=== PATIENT | male | born 1975 | race Caucasian/White ===

== ENCOUNTER 2017-06-02 09:42 | Inpatient (IN) | payer MEDICAID, MEDICARE, OTHER ==
--- NOTE | 2017-06-02 10:20 | ED ---
General Adult HPI - General Chief complaint: Psychiatric Symptoms Stated complaint: Mental Health Time Seen by Provider: 06/02/17 10:17 Source: patient, RN notes reviewed Mode of arrival: ambulatory Limitations: no limitations - History of Present Illness Initial comments: 41-year-old male presents to the emergency department with a chief complaint of suicidal ideation. The patient states that he has a history of manic bipolar and depression. Patient states he's been very depressed lately is having suicidal thoughts. He states that his medications were recently changed. Patient states that he thought about taking all of his medications but his children have stopped him from doing this. Patient does admit to hospitalization for his psychiatric issues in the past. Patient this time denies any health concerns.Patient denies any recent fever, chills, shortness of breath, chest pain, back pain, abdominal pain, nausea vomiting, numbness or tingling, dysuria or hematuria, constipation or diarrhea, headaches or visual changes, or any other current symptoms. - Related Data Home Medications Medication Instructions Recorded Confirmed DULoxetine HCL [Cymbalta] 60 mg PO BID 06/02/17 06/02/17 Dextroamphetamine/Amphetamine 30 mg PO DAILY 06/02/17 06/02/17 [Adderall] Diazepam [Diazepam] 10 mg PO TID PRN 06/02/17 06/02/17 Diclofenac Potassium [Cataflam] 50 mg PO BID 06/02/17 06/02/17 Pregabalin [Lyrica] 50 mg PO DAILY 06/02/17 06/02/17 Simvastatin [Zocor] 20 mg PO HS 06/02/17 06/02/17 Allergies Allergy/AdvReac Type Severity Reaction Status Date / Time morphine Allergy Unknown Verified 06/02/17 10:54 Review of Systems ROS Statement: Those systems with pertinent positive or pertinent negative responses have been documented in the HPI. ROS Other: All systems not noted in ROS Statement are negative. Past Medical History Past Medical History: No Reported History Additional Past Medical History / Comment(s): Pt fell off of a roof and his right ankle was shattered and it was infected, he lost the cartilage in that ankle, and then he developed back pain. History of Any Multi-Drug Resistant Organisms: None Reported Additional Past Surgical History / Comment(s): fatty tumors removed, and right ankle surgery with pins and screws. Past Anesthesia/Blood Transfusion Reactions: No Reported Reaction Past Psychological History: ADD/ADHD, Anxiety, Bipolar, Depression Smoking Status: Current every day smoker Past Alcohol Use History: Occasional Past Drug Use History: None Reported - Past Family History Mother Family Medical History: Cancer Father Family Medical History: Congestive Heart Failure (CHF) General Exam Limitations: no limitations General appearance: alert, in no apparent distress ENT exam: Present: normal exam, mucous membranes moist Neck exam: Present: normal inspection. Absent: tenderness, meningismus, lymphadenopathy Respiratory exam: Present: normal lung sounds bilaterally. Absent: respiratory distress, wheezes, rales, rhonchi, stridor Cardiovascular Exam: Present: regular rate, normal rhythm, normal heart sounds. Absent: systolic murmur, diastolic murmur, rubs, gallop, clicks Neurological exam: Present: alert, oriented X3 Psychiatric exam: Present: depressed, suicidal ideation. Absent: homicidal ideation Skin exam: Present: warm, dry, intact, normal color. Absent: rash Course Vital Signs 06/02/17 09:55 Temperature 98.1 F Pulse Rate 90 Respiratory 18 Rate Blood Pressure 143/93 O2 Sat by Pulse 97 Oximetry Medical Decision Making - Medical Decision Making 41-year-old male presents to the emergency department with a chief complaint of suicidal ideation with depression. At this time the patient does not appear to be suffering from acute medical emergencies. This time the patient is cleared to be evaluated by psychiatry. At this time the patient was evaluated and the patient will be admitted for continued care. Patient agreement with plan. - Lab Data Lab Results 06/02/17 Range/Units 10:37 Urine Opiates Screen Detected H (NotDetected) Ur Oxycodone Screen Not Detected (NotDetected) Urine Methadone Screen Not Detected (NotDetected) Ur Propoxyphene Screen Not Detected (NotDetected) Ur Barbiturates Screen Not Detected (NotDetected) U Tricyclic Antidepress Not Detected (NotDetected) Ur Phencyclidine Scrn Not Detected (NotDetected) Ur Amphetamines Screen Not Detected (NotDetected) U Methamphetamines Scrn Not Detected (NotDetected) U Benzodiazepines Scrn Detected H (NotDetected) Urine Cocaine Screen Not Detected (NotDetected) U Marijuana (THC) Screen Not Detected (NotDetected) Disposition Clinical Impression: Suicidal ideation Disposition: TRANSFER TO PSYCH HOSP/UNIT Referrals: Casey Carr MD [Primary Care Provider] - 1-2 days
[2017-06-02] MEDS ORDERED: MAGNESIUM HYDROXIDE 2,400 MG/10 ML CUP PO PRN (14:07)
[2017-06-02] MEDS ORDERED: MAG HYDROX/AL HYDROX/SIMETH 30 ML CUP PO PRN (14:07)
[2017-06-02 15:12] VITALS: BMI 28.3
[2017-06-02] MEDS: DIAZEPAM 5 MG TAB PO PRN (17:36)
[2017-06-02] MEDS: ACETAMINOPHEN TAB 325 MG TAB PO PRN (17:36)
[2017-06-02] MEDS: DULoxetine HCL 60 MG CAPSULE.DR PO SCH (20:05)
[2017-06-02] MEDS: ATORVASTATIN 10 MG TAB PO SCH (20:05)
[2017-06-02] MEDS: ETODOLAC 200 MG CAPSULE PO SCH (20:05)
[2017-06-03] MEDS: ETODOLAC 200 MG CAPSULE PO SCH ×2 (08:42→20:56)
[2017-06-03] MEDS: PREGABALIN 50 MG CAP PO SCH (08:42)
[2017-06-03] MEDS: DULoxetine HCL 60 MG CAPSULE.DR PO SCH ×2 (08:42→20:56)
[2017-06-03 09:33] LABS: Basophils % (A) 1 %; CH 32.5; CHCM 33.8; Eosinophils # (A) 0.3 k/uL (0-0.7); Eosinophils % (A) 6 %; HCT 42.7 % (39.0-53.0); HGB 13.7 gm/dL (13.0-17.5); Luc # (Auto) 0.13; Luc % (Auto) 2; Lymphocytes # (A) 1.7 k/uL (1.0-4.8); Lymphocytes % (A) 31 %; MCV 96.7 fL (80.0-100.0); Mean Platelet Volume 7.7; Monocytes # (A) 0.2 k/uL (0-1.0); Monocytes % (A) 4 %; Neutrophils # (A) 3.2 k/uL (1.3-7.7); Neutrophils % (A) 57 %; RBC 4.42 m/uL (4.30-5.90); RDW 13.7 % (11.5-15.5); WBC 5.6 k/uL (3.8-10.6); WBC (Perox) 5.46
[2017-06-03 09:49] LABS: ALT 29 U/L (21-72); AST 17 U/L (17-59); Alkaline Phosphatase 65 U/L (38-126); Anion Gap 8 mmol/L; Blood Urea Nitrogen 18 mg/dL (9-20); Calcium 9.3 mg/dL (8.4-10.2); Carbon Dioxide 29 mmol/L (22-30); Chloride 105 mmol/L (98-107); Glucose 97 mg/dL (74-99); Non-African American GFR(MDRD) >60 (>60 ml/min/1.73 sqM); Potassium 4.8 mmol/L (3.5-5.1); Sodium 142 mmol/L (137-145); Total Bilirubin 0.8 mg/dL (0.2-1.3); Total Protein 6.3 g/dL (6.3-8.2)
[2017-06-03] MEDS: DIAZEPAM 5 MG TAB PO PRN (11:50)
[2017-06-03] MEDS: ACETAMINOPHEN TAB 325 MG TAB PO PRN (11:50)
[2017-06-03] MEDS: OLANZapine 10 MG TAB PO SCH ×2 (13:16→20:56)
[2017-06-03] MEDS: ATORVASTATIN 10 MG TAB PO SCH (20:56)
[2017-06-04] MEDS: DULoxetine HCL 60 MG CAPSULE.DR PO SCH ×2 (08:31→20:43)
[2017-06-04] MEDS: ETODOLAC 200 MG CAPSULE PO SCH ×2 (08:31→20:43)
[2017-06-04] MEDS: PREGABALIN 50 MG CAP PO SCH (08:31)
[2017-06-04] MEDS: OLANZapine 10 MG TAB PO SCH (08:33)
[2017-06-04] MEDS: ACETAMINOPHEN TAB 325 MG TAB PO PRN ×2 (15:32→19:12)
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
--- NOTE | 2017-06-04 18:18 | CONS ---
CONSULTATION Date of Consultation: SUBJECTIVE: This is a 41-year-old, white female, admitted for medical consultation in the unit. Said he had some suicidal ideation. History of manic bipolar depression, depressed, suicidal thoughts. He is in due to worsening depression. MEDICATIONS: Home medicines: 1. Cymbalta. 2. Adderall. 3. Diazepam. 4. . 5. Levaquin. 6. Zocor. ALLERGIES: MORPHINE. REVIEW OF SYSTEMS: Fourteen point review of systems negative except for mentioned in HPI. PAST MEDICAL HISTORY: Right elbow surgery pins and screws, ADHD, anxiety, bipolar depression. Current everyday smoker. PHYSICAL EXAMINATION: Temp 98, pulse 85 to 90, respiratory rate 18 to 20, blood pressure is 140s/90s. His O2 97%. Cardiovascular S1 and S2. Lung transmitted upper airway sounds. Hematological: Negative Homans. Psych: Fair mood and flat affect. ASSESSMENT: 1. Suicidal ideation. 2. Depression. 3. Bipolar history. 4. Nicotine addiction. 5. Possible blood pressure. We will monitor electrolytes, blood pressure. Continue on home medications. Thank you for the consultation. MMMATEUSZL / IJN: [id number] /
[2017-06-04] MEDS: ATORVASTATIN 10 MG TAB PO SCH (20:43)
[2017-06-04] MEDS ORDERED: OLANZapine 5 MG TAB PO SCH (21:00)
[2017-06-05 06:54] VITALS: BP 118/63; PULSE 66; RESP 16; TEMP 97.6
[2017-06-05] MEDS: PREGABALIN 50 MG CAP PO SCH (08:22)
[2017-06-05] MEDS: ETODOLAC 200 MG CAPSULE PO SCH (08:22)
[2017-06-05] MEDS: ACETAMINOPHEN TAB 325 MG TAB PO PRN (08:22)
[2017-06-05] MEDS: DULoxetine HCL 60 MG CAPSULE.DR PO SCH (08:22)
--- NOTE | 2017-06-05 10:36 | PN ---
PROGRESS NOTE DATE OF SERVICE: 06/04/2017. INTERVAL HISTORY: Patient has been doing fairly well. He had a quiet evening last night. He slept well. He was slow to get up this morning. He said that he received his morning medication and ended up going back to his room and falling back to sleep for a while. Other than that, he has been up. He has been attending groups. He says that he recognizes it is important for him to stay active. He has been doing walking to help relax himself. He says he has been attending groups which he finds is helpful. He feels the medications have been working for him. His mood has improved. He has a better outlook. He has been processing issues relating to preparing for discharge. It is noted that he lives with his ex-, though she has a home in [place] and spends most of her time there. It is his understanding that he will need to move out to another home by the of the year. In the home is his 21-year-old daughter. His understanding is that his ex- is coming back from [place], where she has a 2nd home. She will be returning to the home with their other 4 children. He is looking forward to spending time with them. He anticipates that once they get in school, his ex- is likely to be back in [place] and that he would be responsible for getting the kids to school. The youngest is 14. He sees this as a positive role he has. He has been appropriate in his manner. He comes out in the day area. He tends to be on the quiet side. He does not interact too much with others, though her responds reasonably well in group. He seems to make an effort to gain insight about his issues. He has not had change in his general health. He tolerates his psychotropic medications. MENTAL STATUS: Patient sat without restlessness. He had a slow manner. His thoughts were clear. He is speaks in a soft voice. There was some hesitancy in his responses. His affect is somewhat blunted. His mood was quiet. He did appear to be distressed. ASSESSMENT: I will continue the current diagnosis and the treatment plan. I have made an effort to call his mother, who he stays in close contact with. I left a message for her to return the call. The patient does have a followup appointment with Dr. Ashraf through [facility] on June 25. He also was followed by his counselor there, Palomo. We will make an effort to connect with his therapist for discharge planning. If the patient continues to remain stable, I would like to discharge the patient tomorrow. SUSAN / GONZÁLEZ: [id number] / ERASTO
--- NOTE | 2017-06-06 16:47 | DS ---
DISCHARGE SUMMARY DATE OF SERVICE: 06/05/2017 ADMITTING AND DISCHARGE DIAGNOSES: 1. Bipolar affect disorder, depressed phase. 2. Hyperlipidemia. 3. Chronic back pain. HISTORY OF PRESENT ILLNESS: The patient was admitted due to suicide thoughts. He had the impulse to take all his pills. He reported a long-term history of problems with bipolar disorder and depression. He did not provide much information in regards to his history. There were no other sources of information. He apparently was having increased stress over the fact that over the next few months he may not be able to live in his current situation. He has been living in the home of his ex- who resides primarily in [place]. He had a prior hospitalization in February of 2014. At that time, he presented with depression, suicidal thinking and poor function. He had 3 or 4 prior psychiatric hospitalizations with suicide attempts including one with overdose of Dilaudid. He has been followed by Dr. Ashraf and his therapist Palomo at [facility]. Currently he is on Cymbalta 60 mg twice a day, Adderall 30 mg a day and Valium 10 mg 3 times a day. It is not clear whether or not he has been taking his medications consistently. He states that he had the onset of bipolar disorder at age 17. He was admitted for further evaluation. SUBSTANCE USE HISTORY: Uncertain. Past medical history, review of system and physical exam: As per medical consultation of Dr. Carr. MENTAL STATUS EXAM: The patient was cooperative. Eye contact fair. Psychomotor activity was slowed. Speech monotone. He answered questions with brief responses. He did not say a lot. His affect was blunted. Mood reserved. He was moderately distressed. There was no indication of thought disorder. Cognitive exam was clear. DIAGNOSTIC STUDIES: CBC and comprehensive metabolic profile was unremarkable. TSH 1.7. Urine drug screen positive for opioids and benzodiazepines. COURSE OF HOSPITALIZATION: The patient was admitted for comprehensive medical psychiatric and psychosocial evaluation. We made efforts to engage the patient in individual and group therapeutic activities. On admission the patient's Valium and Adderall were discontinued. I discussed with the patient that those 2 medications would conflict with one another and were not indicated for a long-term treatment. I continued Cymbalta 60 mg twice a day. I started the patient on Zyprexa 15 mg at bedtime. Zyprexa was indicated to help augment his antidepressant. He also had made some suggestions of psychotic symptoms though he was not very explicit about details. It is noted that on the day after admission he felt he was doing quite a bit better. He said anxiety was reduced. He had better outlook. He slept fairly well at night. He was cooperative with staff. He attended groups and was appropriate. He generally had a quiet manner. He would be seen wandering in the day areas of the unit. He did not seem to interact much with others. He had a very bland, quiet manner when he spoke. Often it was with a soft voice and slow yo. The patient felt that he would be appropriate for discharge based on how he felt he was functioning. He already had appointments in place with Dr. Ashraf on 06/25 and with his therapist Palomo on 06/09. He was reporting no thoughts of suicide. I had a telephone contact with the patient's ex-. She indicated that he was free to come back to stay at her house as he has been living there. There is a plan over time that he would eventually move on his own though she anticipated that it might be not until early into next year. She noted that he likely was not taking medications consistently based on bottles of medicines he had at home. She felt that he would be safe to return home. She notes that typically at home he is fairly talkative and active though this presentation is suggestive of depression that he has had at other times. She felt that he would be consistent in making his followup appointments. The social service liaison had contact with the patient's mother whom he identified as a support person. The mother has apparently fairly regular contacts with the patient and felt that there were no immediate issues needing to be addressed during a hospitalization. The patient was able to engage in appropriate discharge planning. CONDITION ON DISCHARGE: Patient was stable. Mood was improved. He did not have any thoughts or impulses towards suicide or self harm. He tolerated his medications well. He was motivated for followup. RECOMMENDATIONS AND FOLLOW UP: The patient is discharged to home. DISCHARGE MEDICATIONS: Include Cymbalta 60 mg twice a day, Zyprexa 15 mg a day, Cataflam 50 mg twice a day, Lyrica 50 mg daily, Zocor 20 mg daily. Valium an Adderall are discontinued. He has a followup appointment with [facility].06/09 at 9:00 am and on 06/[address] Ashraf. He was referred back to Dr. Carr for primary care. MMODL / IJN: [id number] /
== END 2017-06-05 16:46 | disposition home or self-care (01) | DRG 885 ==
LOC: EC 09:42 → 3MHU 12:20
PROVIDERS: ADMIT Psychiatry & Neurology Psychiatry; ATTEND Psychiatry & Neurology Psychiatry
DX: F31.9 Bipolar disorder, unspecified (principal); R45.851 Suicidal ideations; E78.5 Hyperlipidemia, unspecified; G89.29 Other chronic pain; M54.5 Low back pain; F90.9 Attention-deficit hyperactivity disorder, unspecified type; F17.200 Nicotine dependence, unspecified, uncomplicated; F41.9 Anxiety disorder, unspecified; Z91.5 Personal history of self-harm; Z79.899 Other long term (current) drug therapy; Z88.5 Allergy status to narcotic agent
CPT/HCPCS: 80053; 80306; 82075; 84443; 85025; 99285

== ENCOUNTER 2019-03-16 10:12 | Observation (INO) | payer MEDICARE, OTHER ==
[2019-03-16 10:17] VITALS: RESP 20; TEMP 98.2
--- NOTE | 2019-03-16 10:56 | ED ---
Chest Pain HPI <Barron Willett - Last Filed: 03/16/19 13:04> - General Source: patient Mode of arrival: ambulatory Limitations: no limitations <Laurent Schneider - Last Filed: 03/16/19 15:44> - General Chief Complaint: Chest Pain Stated Complaint: chest pain Time Seen by Provider: 03/16/19 10:25 - History of Present Illness Initial Comments: Patient is a 43-year-old male presenting to emergency department for chest pain. Patient reports the gradual chest pain started approximately 3 days ago and has been a 4 and persistent ever since. Patient does not report any alleviating or aggravating factors. Patient reports the pain does not radiate to either bilateral upper extremities. Patient reports the pain has resolved once he was admitted to the emergency department. Patient denies syncope, nausea, vomiting, fever, abdominal pain or focal neural deficits. Patient reports diaphoresis but states this is baseline for him. Patient reports taking medication to maintain his cholesterol levels but does not take anything for hypertension. Patient is not a smoker. Patient denies taking any medication to alleviate the pain. Patient denies cough or lower extremity edema. Patient does report a history of anxiety and previous panic attacks causing similar symptoms. Patient is being treated for bipolar disorder. (Laurent Schneider) - Related Data Home Medications Medication Instructions Recorded Confirmed Atorvastatin [Lipitor] 20 mg PO HS 03/16/19 03/16/19 Dextroamphetamine/Amphetamine 60 mg PO DAILY 03/16/19 03/16/19 [Adderall Xr] Ergocalciferol (Vitamin D2) 50,000 unit PO Q7D 03/16/19 03/16/19 [Vitamin D2] Gabapentin [Neurontin] 600 mg PO TID 03/16/19 03/16/19 OLANZapine [ZyPREXA] 10 mg PO HS 03/16/19 03/16/19 Vortioxetine Hydrobromide 20 mg PO DAILY 03/16/19 03/16/19 [Trintellix] Allergies Allergy/AdvReac Type Severity Reaction Status Date / Time morphine Allergy Unknown Verified 03/16/19 13:58 Review of Systems ROS Other: All systems not noted in ROS Statement are negative. <Barron Willett - Last Filed: 03/16/19 13:04> ROS Other: All systems not noted in ROS Statement are negative. <Laurent Schneider - Last Filed: 03/16/19 15:44> ROS Statement: Those systems with pertinent positive or pertinent negative responses have been documented in the HPI. EKG Findings - EKG Comments: EKG Findings:: Normal sinus rhythm, normal EKG. With ventricular rate 95, OK interval 144, QRS duration 92, QT/QTc 372/467, PRT axes -2, 53, 27. <Laurent Schneider - Last Filed: 03/16/19 15:44> Past Medical History Past Medical History: No Reported History Additional Past Medical History / Comment(s): Pt fell off of a roof and his right ankle was shattered and it was infected, he lost the cartilage in that ankle, and then he developed back pain. History of Any Multi-Drug Resistant Organisms: None Reported Additional Past Surgical History / Comment(s): fatty tumors removed, and right ankle surgery with pins and screws. Past Anesthesia/Blood Transfusion Reactions: No Reported Reaction Past Psychological History: ADD/ADHD, Anxiety, Bipolar, Depression Smoking Status: Current every day smoker Past Alcohol Use History: Occasional Past Drug Use History: None Reported - Past Family History Mother Family Medical History: Cancer Father Family Medical History: Congestive Heart Failure (CHF) <Laurent Schneider - Last Filed: 03/16/19 15:44> General Exam Limitations: no limitations General appearance: alert, in no apparent distress Head exam: Present: atraumatic, normocephalic, normal inspection Eye exam: Present: normal appearance, PERRL, EOMI Pupils: Present: normal accommodation ENT exam: Present: normal exam, mucous membranes moist, TM's normal bilaterally Neck exam: Present: normal inspection, full ROM Respiratory exam: Present: normal lung sounds bilaterally. Absent: respiratory distress, wheezes, rales Cardiovascular Exam: Present: normal rhythm, tachycardia, normal heart sounds GI/Abdominal exam: Present: soft, normal bowel sounds Extremities exam: Present: normal inspection, full ROM, normal capillary refill, other (+2 bilateral ulnar, radial, posterior tibialis, dorsalis pedis.) Back exam: Present: normal inspection. Absent: CVA tenderness (R), CVA tenderness (L) Neurological exam: Present: alert, oriented X3 Psychiatric exam: Present: normal affect, normal mood Skin exam: Present: warm, intact, normal color <Laurent Schneider - Last Filed: 03/16/19 15:44> Course <BrennonBarron - Last Filed: 03/16/19 13:04> Vital Signs 03/16/19 03/16/19 03/16/19 10:14 10:34 11:00 Temperature 98.2 F Pulse Rate 112 H 97 101 H Respiratory 20 18 16 Rate Blood Pressure 150/101 136/105 129/117 O2 Sat by Pulse 97 Oximetry 03/16/19 03/16/19 03/16/19 11:30 11:56 12:00 Temperature Pulse Rate 96 Respiratory 17 Rate Blood Pressure 140/97 133/100 135/104 O2 Sat by Pulse Oximetry 03/16/19 03/16/19 03/16/19 12:30 12:40 13:30 Temperature Pulse Rate 91 97 Respiratory 18 17 Rate Blood Pressure 120/96 133/97 129/92 O2 Sat by Pulse Oximetry 03/16/19 03/16/19 03/16/19 14:00 14:30 15:00 Temperature Pulse Rate 85 86 95 Respiratory 18 18 20 Rate Blood Pressure 127/96 138/93 128/95 O2 Sat by Pulse Oximetry 03/16/19 15:30 Temperature Pulse Rate 101 H Respiratory 20 Rate Blood Pressure 120/70 O2 Sat by Pulse Oximetry - Reevaluation(s) Reevaluation #1: 03/16/19 13:04 Case discussed with practitioner Shabbir. Case also discussed with Dr. Carr, who will admit his patient. (Barron Willett) Chest Pain MDM - Differential Diagnosis Panic Disorder/Anxiety - Wells Criteria Clinical Symptoms of DVT: (0) No No Alternative Diagnosis: (0) No Immobilization of Surgery in Previous 4 Weeks: (0) No Previous DVT/PE: (0) No Hemoptysis: (0) No Malignancy: (0) No <Laurent Schneider - Last Filed: 03/16/19 15:44> - [facility] Patient is a 43-year-old male presents emergency Department with chest pain. Full cardiac workup was initiated. EKG and and chest x-ray unremarkable. Troponin, CBC and CMP are unremarkable. Patient is being treated for hypercholesterolemia, has a family history of cardiovascular disease and is currently hypertensive. Patient will be admitted for 24-hour observation. cardiology was consulted. On reevaluation after 5 hours, patient appeared to be having anxiety about staying in the hospital. Patient was given 0.5 mg of Xanax to alleviate the anxiety. Patient agree with the treatment plan and wants to stay for observation. (Laurent Schneider) Disposition <Barron Willett - Last Filed: 03/16/19 13:04> Is patient prescribed a controlled substance at d/c from ED?: No Time of Disposition: 15:43 <Laurent Schneider - Last Filed: 03/16/19 15:44> Clinical Impression: Chest pain Disposition: ADMITTED IP TO THIS HOSP Condition: Stable
[2019-03-16 11:15] LABS: Basophils % (A) 1 %; Eosinophils # (A) 0.3 k/uL (0-0.7); Eosinophils % (A) 4 %; HCT 46.6 % (39.0-53.0); HGB 15.8 gm/dL (13.0-17.5); Lymphocytes # (A) 1.5 k/uL (1.0-4.8); Lymphocytes % (A) 25 %; MCH 30.9 pg (25.0-35.0); Mean Platelet Volume 7.2; Monocytes # (A) 0.3 k/uL (0-1.0); Monocytes % (A) 5 %; Neutrophils # (A) 3.9 k/uL (1.3-7.7); Neutrophils % (A) 63 %; Platelet Count 201 k/uL (150-450); RBC 5.12 m/uL (4.30-5.90); RDW 15.6 % (11.5-15.5); WBC 6.2 k/uL (3.8-10.6)
[2019-03-16 11:24] LABS: ALT 74 U/L (21-72); AST 77 U/L (17-59); African American GFR (CKD) >90 (>60 ml/min/1.73 sqM); Albumin 4.5 g/dL (3.5-5.0); Alkaline Phosphatase 107 U/L (38-126); Anion Gap 10 mmol/L; Blood Urea Nitrogen 15 mg/dL (9-20); Calcium 9.7 mg/dL (8.4-10.2); Carbon Dioxide 23 mmol/L (22-30); Chloride 107 mmol/L (98-107); Glucose 105 mg/dL (74-99); Magnesium 1.9 mg/dL (1.6-2.3); Potassium 4.2 mmol/L (3.5-5.1); Sodium 140 mmol/L (137-145); Total Protein 7.3 g/dL (6.3-8.2)
--- NOTE | 2019-03-16 11:28 | XR ---
EXAMINATION TYPE: XR chest 2V DATE OF EXAM: 03/16/2019 COMPARISON: Prior chest x-ray 10/09/2015 HISTORY: Chest pain and shortness of breath TECHNIQUE: Frontal and lateral views of the chest are obtained. FINDINGS: There is no focal air space opacity, pleural effusion, or pneumothorax seen. The cardiac silhouette size is within normal limits. The osseous structures are intact. There are overlying car diac leads. IMPRESSION: No acute cardiopulmonary process.
[2019-03-16 11:43] LABS: INR 0.9 (<1.2); Partial Thromboplastin Time 22.4 sec (22.0-30.0); Prothrombin Time 9.7 sec (9.0-12.0)
[2019-03-16] MEDS ORDERED: ASPIRIN 325 MG TAB PO STA (12:58)
[2019-03-16] MEDS ORDERED: KETOROLAC 30 MG/ML 1 ML VIAL IVP PRN (13:36)
[2019-03-16] MEDS ORDERED: NALOXONE 0.4 MG/ML 1 ML VIAL IV PRN (13:36)
[2019-03-16] MEDS ORDERED: ONDANSETRON 4 MG/2 ML VIAL IVP PRN (13:36)
[2019-03-16] MEDS ORDERED: KETOROLAC 30 MG/ML 1 ML VIAL IVP STA (13:39)
[2019-03-16] MEDS ORDERED: ACETAMINOPHEN ORAL SUSP 160 MG/5 ML CUP PO ONE (13:41)
[2019-03-16] MEDS ORDERED: ACETAMINOPHEN TAB 325 MG TAB PO PRN (14:25)
[2019-03-16] MEDS ORDERED: NITROGLYCERIN SL TABS 0.4 MG TAB SUBLINGUAL PRN (14:49)
[2019-03-16] MEDS ORDERED: ALPRAZolam 0.5 MG TAB PO STA (15:33)
[2019-03-16] MEDS ORDERED: NITROGLYCERIN OINT 1 INCH/GM PACKET TOPICAL SCH (18:00)
[2019-03-16 19:05] VITALS: BP 131/92; PULSE 81
[2019-03-17] MEDS ORDERED: ASPIRIN 325 MG TAB PO SCH (09:00)
== END 2019-03-16 18:51 | disposition left against medical advice (07) ==
LOC: EC 10:12 → 1SOBS 14:48 → UNDODISOB 18:51
PROVIDERS: ADMIT Family Medicine; ATTEND Family Medicine
DX: R07.89 Other chest pain (principal); R03.0 Elevated blood-pressure reading, without diagnosis of hypertension; E78.00 Pure hypercholesterolemia, unspecified; F31.9 Bipolar disorder, unspecified; R61 Generalized hyperhidrosis; F41.0 Panic disorder [episodic paroxysmal anxiety]; F90.9 Attention-deficit hyperactivity disorder, unspecified type; F41.9 Anxiety disorder, unspecified; F17.200 Nicotine dependence, unspecified, uncomplicated; Z88.5 Allergy status to narcotic agent; Z79.899 Other long term (current) drug therapy; Z87.828 Personal history of other (healed) physical injury and trauma; Z82.49 Family history of ischemic heart disease and other diseases of the circulatory system; Z80.9 Family history of malignant neoplasm, unspecified; Z53.21 Procedure and treatment not carried out due to patient leaving prior to being seen by health care provider
CPT/HCPCS: 96374; 99285; 36415; 93005; 85379; 80053; 83735; 84484; 85025; 85610; 85730; 71046; G0378; J1885

== ENCOUNTER → 2019-10-19 | Outpatient (CLI) | payer MEDICARE, OTHER ==
[2019-10-19 12:26] VITALS: BP 144/102; PULSE 114; RESP 16
--- NOTE | 2019-10-19 13:32 | P.CON ---
Consult Note - . Consult date: 10/19/19 Assessment/Plan:: Pain Management Consultation 44-year-old male with a history of low back pain radiating into his posterior hamstrings and numbness and tingling in the third fourth and fifth digits of his left foot. He's had this issue ongoing for several years now, and it is progressing. He also has a complaint of right ankle pain that was injured over 10 years ago from a work-related incident. She's had multiple surgeries and reconstructive surgeries on that right ankle. He had been seeing a pain management physician up until 2 years ago. 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 With regards to his low back pain, his VAS very similar 4-8 out of 10 in severity is planning on activity. Some days he has no difficulties with extension or flexion or radiating pain into his hamstrings however there are significantly debilitating days in which she is unable to stand for long periods, go from supine to standing, or perform basic ADLs. He describes the pain in his back as an aching, throbbing pain across his low back. The numbness and tingling in his left third, fourth, fifth digits is constant. He denies any pain in his quadriceps, or numbness and tingling in the dorsal or plantar aspect of his feet. Regarding his right ankle pain. He does not endorse hyperalgesia or allodynia. He states the pain is "inside". She feels as if his ankle is "dislocating" secondary to his ankle pain he endorses an antalgic gait that he thinks is exacerbating his low back pain. In addition to above, 13-point review of systems is also negative for chest pain, shortness of breath, changes in vision, changes in hearing, new onset weakness, abdominal pain, diarrhea, extreme fatigue, malaise, fever, skin changes, homicidal or suicidal ideation, or bowel or bladder incontinence. Physical exam: Vital Signs: Reviewed in EMR, blood pressure 144/102. Informed him to follow- up with the primary care doctor for evaluation and possible medical management. Gen: AAOx3, NAD HEENT: NCAT, EOMI, hearing grossly normal Pulm: resp unlabored CVS: Regular rate and rhythm Neck: supple, trachea midline ROM in flexion lumbar spine: Pain at greater than 45 ROM in extension lumbar spine: Mirlande greater than -10 Lumbar paravertebral tenderness: + + Left lumbar paraspinal muscles left greater than right Facet loading: + bilateral SI joint tenderness: Negative bilateral Rosendo's test: Bilateral Straight leg raise: Negative bilateral Right ankle: Surgical incisions are clean dry and intact, no hyperalgesia or allodynia appreciated. No pseudomotor vasomotor signs appreciated when compared to her left ankle. Range of motion is limited secondary to pain. Neuro: 5 out of 5 muscle strength in upper extremities bilaterally. Patient displays poor effort with quadricep extension as well as hamstring flexion. 4+/5 plantar flexion on left compared to right. Deep tendon reflexes are appropriate and symmetrical at the patella as well as in biceps and brachial radialis. Imaging: Reviewed in EMR Assessment: 1. lumbar degenerative disc disease 2. lumbar radiculopathy 3. lumbar spondylosis Plan: 1. Explanation: Opioid and psychological risk scores were reviewed. Diagnoses, prognoses, and multiple treatment options including but not limited to physical therapy, interventional therapies, adjuvant medical therapies, narcotic medication therapies, and surgery were discussed with the patient and all questions were answered to the patient's satisfaction. 2. Opioid agreement: 3. Counseling: The patient was counseled extensively on smoking cessation, body mass index, exercise. Specifically, the patient was instructed regarding the importance of smoking cessation, obesity, and exercise in the context of both chronic pain and overall health. 4. Procedures: We discussed a series of epidural steroid injections targeting the left L5-S1 interspace. 5. Consultations: Referral to Dr. Baker for right ankle evaluation and treatment recommendations 6. Investigations: Maps reviewed and appropriate with patient's history 7. Medications: None 8. Disposition: f/u for procedure as scheduled, the risks and benefits of the procedure were discussed with the patient that included but not limited to epidural hematoma, bleeding, infection. Patient consents to procedure. PQRS measures: 1-Patient's medications are documented in the chart. 2-Tobacco use is positive, counseling refused by patient. 3-Patient has not had a pneumococcal vaccine. 4-Advanced care planning discussed, patient unable to give. 5-Opioid contract not signed with the patient. 6-Pain positive, follow-up visit or procedure scheduled 7-Patient's blood pressure measured and documented, instructed him to follow-up with primary care doctor. 8-Patient's weight was measured, and body mass index ABOVE the normal limits, and counseling was done. Patient instructed to follow up with PCP. 9-Patient WAS NOT identified as an unhealthy alcohol user.
== END | disposition home or self-care (01) ==
LOC: PNWHC3 11:20
PROVIDERS: ATTEND Anesthesiology
DX: M51.16 Intervertebral disc disorders with radiculopathy, lumbar region (principal); M47.26 Other spondylosis with radiculopathy, lumbar region; Z72.0 Tobacco use
CPT/HCPCS: 99211